=== PATIENT | male | born 1955 | race Asian ===

== ENCOUNTER 2020-08-27 13:12 | Observation (INO) ==
[2020-08-27] MEDS ORDERED: ACETAMINOPHEN 500 MG TABLET PO STA (17:08)
[2020-08-27] MEDS ORDERED: ACETAMINOPHEN 500 MG TABLET ONE (17:09)
[2020-08-27 17:31] LABS: Hematocrit 47.8 VOL% (42.0-52.0); Hemoglobin 16.6 GM/DL (14.0-18.0); Mean Corpuscular HGB Conc 34.7 GM/DL (32-36); Mean Corpuscular Volume 88.8 FL (87-102); Platelet Count 207 T/CUMM (130-400); Red Blood Count 5.38 MC/CUMM (3.8-5.5); White Blood Count 8.5 T/CUMM (4-12)
[2020-08-27 17:32] LABS: Basophils % 0.2 % (0.0-0.8); Immature Granulocytes % 0.2 %; Immature Granulocytes Absolute 0.02 #; Lymphocytes % 35.4 % (21.2-54.2); Mean Platelet Volume 9.8 FL (9.6-12.0); Monocytes % 10.3 % (1.7-12.7); Neutrophils % 53.9 % (38.7-73.9)
[2020-08-27] MEDS ORDERED: SODIUM CHLORIDE 0.9% 1,000 ML IV STA ×2 (17:53→20:49)
[2020-08-27] MEDS ORDERED: MORPHINE 4 MG/1 ML VIAL IV STA (17:53)
[2020-08-27 17:54] LABS: Albumin 3.3 G/DL (3.4-5.0); Calcium 8.1 MG/DL (8.5-10.1); Osmolality,Calculated 267.5 MOS/KG (273-304); Potassium 3.4 MMOL/L (3.5-5.1)
[2020-08-27] MEDS ORDERED: ONDANSETRON 4 MG/2 ML VIAL ONE (18:00)
[2020-08-27] MEDS ORDERED: ONDANSETRON 4 MG/2 ML VIAL IV STA (18:01)
[2020-08-27 19:30] LABS: Bilirubin,Urine Negative (Negative); Blood, Urine Negative (Negative); Glucose,Urine (UA) Negative (Negative); Ketones,Urine Negative (Negative); Nitrite,Urine Negative (Negative); Protein,Urine Negative; Urine Appearance CLEAR (Clear); Urine Color Yellow (Yellow); Urine Specific Gravity > 1.060 (1.001-1.035); Urine Urobilinogen < 2.0 EU/DL (0.2-1.0)
[2020-08-27 21:27] LABS: Barbiturates Screen,Urine Negative (Negative); Benzodiazepines Screen,Urine Negative (Negative); Cannabinoid Screen,Urine Negative (Negative); Opiate Screen,Urine Positive (Negative); Phencyclidine Screen,Urine Negative (Negative)
[2020-08-27 21:43] LABS: ABG Base Excess 3.2 MMOL/L (-2.5-2.5); ABG HCO3 27.2 MMOL/L (20-26); ABG Oxygen Saturation 95.1 % (95-100); ABG PCO2 45.1 MM HG (35-48); ABG PH 7.409 (7.35-7.45); ABG PO2 74.4 MM HG (80-95); ABG TCO2 24.4 MMOL/L (23-27); Allen Test Positive; Pt O2 Delivery Device Room Air
[2020-08-27] MEDS ORDERED: FAMOTIDINE 20 MG TABLET PO STA (22:28)
[2020-08-27] MEDS ORDERED: ALUM/MAG/SIMETH/LIDO VISC 1:1 30 ML BOTTLE PO STA (22:28)
[2020-08-27] MEDS ORDERED: SIMETHICONE CHEW 125 MG TABLET PO PRN (22:43)
[2020-08-27] MEDS ORDERED: guaiFENesin/DM ER 600-30 MG TABLET PO PRN (22:43)
[2020-08-27] MEDS ORDERED: DEXTROSE 50% 25 GM/50 ML VIAL IV PRN (22:43)
[2020-08-27] MEDS ORDERED: ALBUTEROL/IPRATROPIUM 3 ML NEB RESP TX PRN (22:43)
[2020-08-27] MEDS ORDERED: ONDANSETRON 4 MG/2 ML VIAL IV PRN (22:43)
[2020-08-27] MEDS ORDERED: ALUMINUM/MAGNES/SIMETH MAX STR 30 ML UDCUP PO PRN (22:43)
[2020-08-27] MEDS ORDERED: ACETAMINOPHEN 325 MG TABLET PO PRN (22:43)
[2020-08-27] MEDS ORDERED: GLUCAGON 1 MG VIAL IM PRN (22:43)
[2020-08-27] MEDS ORDERED: diphenhydrAMINE CAP 25 MG CAPSULE PO PRN (22:43)
[2020-08-27] MEDS ORDERED: ZALEPLON 5 MG CAPSULE PO PRN (22:43)
[2020-08-27] MEDS ORDERED: NICOTINE 21 MG/24 HR PATCH TRANSDERM PRN (22:43)
[2020-08-27] MEDS ORDERED: hydrALAZINE 20 MG/1 ML VIAL IV PRN (22:43)
[2020-08-27] MEDS ORDERED: CALCIUM CARBONATE CHEW 500 MG TABLET PO PRN (22:43)
[2020-08-27] MEDS ORDERED: MORPHINE 4 MG/1 ML VIAL IV PRN (22:43)
[2020-08-27] MEDS ORDERED: PANTOPRAZOLE 40 MG VIAL IV ONE (22:45)
[2020-08-27] MEDS ORDERED: ENOXAPARIN 40 MG/0.4 ML SYRINGE SUBCUT SCH (23:00)
[2020-08-28] MEDS: DEXT 5% NACL 0.9% KCL 40 MEQ 40 MEQ/1,000 ML BAG IV SCH ×2 (01:53→18:00)
[2020-08-28] MEDS: FAMOTIDINE 20 MG/2 ML VIAL IV SCH ×3 (01:53→22:35)
[2020-08-28 04:35] LABS: Eosinophils # 0.1 10*3/uL (0.0-0.87); Eosinophils % 0.8 % (0.00-10.9); Immature Granulocytes % 0.3 %; Immature Granulocytes Absolute 0.02 #; Lymphocytes % 38.3 % (21.2-54.2)
[2020-08-28 04:43] LABS: Basophils % 0.3 % (0.0-0.8); Hematocrit 41.6 VOL% (42.0-52.0); Mean Corpuscular HGB Conc 34.4 GM/DL (32-36); Mean Platelet Volume 9.6 FL (9.6-12.0); Monocytes % 10.2 % (1.7-12.7); Neutrophils % 50.1 % (38.7-73.9); Platelet Count 190 T/CUMM (130-400); Red Blood Count 4.62 MC/CUMM (3.8-5.5); White Blood Count 7.9 T/CUMM (4-12)
[2020-08-28 04:48] LABS: Hemoglobin 14.3 GM/DL (14.0-18.0)
[2020-08-28 05:09] LABS: Calcium 7.2 MG/DL (8.5-10.1); Potassium 3.5 MMOL/L (3.5-5.1)
[2020-08-28 05:17] LABS: Lymphocytes 29 % (20-55); Platelet Estimate Normal; Segmented Neutrophils 56 % (50-85); Total Cells Counted 100
[2020-08-28] MEDS: PANTOPRAZOLE 40 MG VIAL IV SCH (09:12)
[2020-08-28] MEDS ORDERED: INFLUENZA VIRUS VACCINE 0.5 ML SYRINGE IM ONE (13:34)
[2020-08-28 15:30] LABS: Hematocrit 43.2 VOL% (42.0-52.0); Hemoglobin 14.7 GM/DL (14.0-18.0)
[2020-08-28 20:42] LABS: Hematocrit 42.4 VOL% (42.0-52.0); Hemoglobin 14.1 GM/DL (14.0-18.0)
[2020-08-29 05:12] LABS: Basophils % 0.2 % (0.0-0.8); Eosinophils # 0.1 10*3/uL (0.0-0.87); Eosinophils % 1.6 % (0.00-10.9); Hematocrit 43.1 VOL% (42.0-52.0); Hemoglobin 14.2 GM/DL (14.0-18.0); Immature Granulocytes % 0.2 %; Immature Granulocytes Absolute 0.01 #; Lymphocytes # 1.9 10*3/uL (1.4-4.0); Lymphocytes % 34.2 % (21.2-54.2); Mean Corpuscular HGB Conc 32.9 GM/DL (32-36); Mean Corpuscular Volume 92.9 FL (87-102); Mean Platelet Volume 9.8 FL (9.6-12.0); Monocytes % 12.5 % (1.7-12.7); Neutrophils % 51.3 % (38.7-73.9); Platelet Count 205 T/CUMM (130-400); Red Blood Count 4.64 MC/CUMM (3.8-5.5); Red Cell Distribution Width 11.7 % (9.3-17.3); White Blood Count 5.6 T/CUMM (4-12)
[2020-08-29 05:13] LABS: Calcium 7.7 MG/DL (8.5-10.1); Osmolality,Calculated 278.3 MOS/KG (273-304); Potassium 4.6 MMOL/L (3.5-5.1)
[2020-08-29 05:36] LABS: Platelet Estimate Adequate
[2020-08-29 08:11] VITALS: BP 124/49
[2020-08-29] MEDS: PANTOPRAZOLE 40 MG VIAL IV SCH (09:37)
== END 2020-08-29 10:35 | disposition home or self-care (01) ==
LOC: EDBD → N.EDINP 13:12 → N.ED 13:12 → SUATTDRO 22:43 → N.5E 08-28 12:50
PROVIDERS: ADMIT Phlebology; ATTEND Internal Medicine